=== PATIENT | female | born 1995 | race Asian ===

== ENCOUNTER 2016-07-17 20:59 | Emergency (ER) | payer OTHER ==
[2016-07-17] MEDS ORDERED: Ibuprofen TAB* 400 MG PO ONE (21:52)
--- NOTE | 2016-07-17 22:44 | RAD ---
HISTORY: Left upper leg pain, trauma COMPARISONS: None VIEWS: 1, Single frontal view of the pelvis FINDINGS: BONE DENSITY: Normal. BONES: There is no displaced fracture. JOINTS: There is no arthropathy. ALIGNMENT: There is no dislocation. SOFT TISSUES: Unremarkable. OTHER FINDINGS: None. IMPRESSION: NO ACUTE OSSEOUS INJURY. IF SYMPTOMS PERSIST, RECOMMEND REPEAT IMAGING.
--- NOTE | 2016-07-17 22:45 | RAD ---
HISTORY: Left upper leg trauma COMPARISONS: None VIEWS: 4, Frontal and lateral views of the left femur FINDINGS: BONE DENSITY: Normal. BONES: There is no displaced fracture. JOINTS: There is no arthropathy. ALIGNMENT: There is no dislocation. SOFT TISSUES: Unremarkable. OTHER FINDINGS: None. IMPRESSION: NO ACUTE OSSEOUS INJURY. IF SYMPTOMS PERSIST, RECOMMEND REPEAT IMAGING.
--- NOTE | 2016-07-17 22:47 | ED ---
Lower Extremity - HPI Summary HPI Summary: Patient presents with left thigh and hip pain after a glass door came out of its track and fell. She was carrying an armful of items and the door fell, hitting the items and her. She fell to the ground and was unable to get up due to pain. EMS was called and she was BIBA. She denies previous injury to this leg , or N/T. - History of Current Complaint Chief Complaint: EDExtremityLower Stated Complaint: LT UPPER LEG PAIN Time Seen by Provider: 07/17/16 21:08 Hx Obtained From: Patient, Family/[employer] Mechanism Of Injury: Blunt Trauma Onset of Pain: Immediate Onset/Duration: Minutes Severity Initially: Severe Severity Currently: Severe Pain Intensity: 8 Timing: Constant Character Of Pain: Aching, Stiffness Associated Signs And Symptoms: Positive: Negative Aggravating Factor(s): Movement Alleviating Factor(s): Rest Able to Bear Weight: No - Allergies/Home Medications Allergies/Adverse Reactions: Allergies Allergy/AdvReac Type Severity Reaction Status Date / Time No Known Allergies Allergy Verified 07/17/16 21:29 PMH/Surg Hx/FS Hx/Imm Hx Previously Healthy: Yes Infectious Disease History: No Infectious Disease History: Denies: Traveled Outside the [place] in Last 30 Days - Family History Known Family History: Positive: None - Social History Occupation: Student Lives: With Family Alcohol Use: None Substance Use Type: Reports: None Smoking Status (MU): Never Smoked Tobacco Review of Systems Positive: Myalgia. Negative: Edema Negative: Bruising Negative: Weakness, Paresthesia, Numbness All Other Systems Reviewed And Are Negative: Yes Physical Exam Triage Information Reviewed: Yes Vital Signs On Initial Exam: Initial Vitals Temp Pulse Resp BP Pulse Ox 98.1 F 73 16 88/60 99 07/17/16 21:26 07/17/16 21:26 07/17/16 21:26 07/17/16 21:26 07/17/16 21:26 Vital Signs Reviewed: Yes Appearance: Positive: Well-Appearing, Pain Distress, Thin Skin: Positive: Warm, Skin Color Reflects Adequate Perfusion, Dry, Soft Head/Face: Positive: Normal Head/Face Inspection Eyes: Positive: EOMI, MACK, Conjunctiva Clear ENT: Positive: Hearing grossly normal Respiratory/Lung Sounds: Positive: Breath Sounds Present Cardiovascular: Positive: RRR Abdomen Description: Positive: Nontender, Soft Musculoskeletal: Positive: Limited @ - Pain limits movement of the left hip; non -tender with IR/ER, Pain @ - TTP left thigh and hip; non-tender pelvis or knee. Negative: Edema Left, Edema Right Neurological: Positive: Sensory/Motor Intact, Alert, Oriented to Person Place, Time, NV Bundle Intact Distally, Unable to Assess Gait Psychiatric: Positive: Affect/Mood Appropriate AVPU Assessment: Alert Diagnostics - Vital Signs Vital Signs Temp Pulse Resp BP Pulse Ox 07/17/16 21:26 98.1 F 73 16 88/60 99 - Laboratory Lab Statement: Any lab studies that have been ordered have been reviewed, and results considered in the medical decision making process. - Radiology No standard instances Xray Interpretation: No Acute Changes Radiology Interpretation Completed By: Radiologist Lower Extremity Course/Dx - Diagnoses Differential Diagnosis/HQI/PQRI: Positive: Arthritis, Bursitis, Compartment Syndrome, Contusion, Fracture (Closed), Sprain, Strain Provider Diagnoses: Contusion of left hip and thigh Discharge - Discharge Plan Condition: Stable Disposition: HOME Patient Education Materials: Contusion in Adults (ED), RICE Therapy (ED) Referrals: Marck Lyles MD [Primary Care Provider] - Additional Instructions: Please use the crutches to keep weight off your leg until your pain improves. Use 600mg three times daily with meals for the next 3-5 days to decrease swelling and pain. Follow-up with your primary care provider if your symptoms do not begin to improve in then next 5 days. Return to the emergency department if symptoms worsen.
[2016-07-17 23:42] VITALS: BP 111/71
== END 2016-07-17 23:04 | disposition home or self-care (01) ==
LOC: ED 20:59
DX: S70.02XA Contusion of left hip, initial encounter (principal); S70.10XA Contusion of unspecified thigh, initial encounter; X58.XXXA Exposure to other specified factors, initial encounter; Y93.9 Activity, unspecified; Y92.9 Unspecified place or not applicable
CPT/HCPCS: 72170; 99282; A9270-GY

== ENCOUNTER 2016-08-01 09:38 | Emergency (ER) | payer OTHER ==
[2016-08-01] MEDS ORDERED: Ondansetron ODT TAB* 4 MG PO ONE (10:32)
[2016-08-01] MEDS ORDERED: Ketorolac INJ* 30 MG/ML 1 ML VIAL IM ONE (10:32)
--- NOTE | 2016-08-01 10:43 | UC ---
Abdominal Pain Female HPI - HPI Summary HPI Summary: 21 yo female awoke this AM with a particularly painful period pelvic cramps n/v x 1 pt states there is no way she could be and declines test - History of Current Complaint Chief Complaint: UCGI Stated Complaint: ABDOMINAL COMPLAINT Time Seen by Provider: 08/01/16 10:28 Hx Obtained From: Patient Hx Last Menstrual Period: 08/01/16 Onset/Duration: Sudden Onset, Lasting Hours Timing: Constant Severity Initially: Moderate Severity Currently: Moderate Pain Intensity: 7 Pain Scale Used: 0-10 Numeric Location: Other - bilateral pelvic Radiates: No Character: Cramping Aggravating Factor(s): Nothing Alleviating Factor(s): Nothing Associated Signs and Symptoms: Positive: Vaginal Bleeding, Nausea, Vomiting Allergies/Adverse Reactions: Allergies Allergy/AdvReac Type Severity Reaction Status Date / Time No Known Allergies Allergy Verified 08/01/16 10:16 PMH/Surg Hx/FS Hx/Imm Hx Endocrine History Of: Denies: Diabetes, Thyroid Disease Cardiovascular History Of: Denies: Cardiac Disorders, Hypertension Respiratory History Of: Denies: COPD, Asthma GI/ History Of: Denies: Ulcer - Surgical History Surgical History: None - Family History Known Family History: Positive: None Negative: Cardiac Disease, Hypertension, Diabetes - Social History Alcohol Use: None Substance Use Type: None Smoking Status (MU): Never Smoked Tobacco Review of Systems Constitutional: Negative Skin: Negative Eyes: Negative ENT: Negative Respiratory: Negative Cardiovascular: Negative Gastrointestinal: Abdominal Pain, Vomiting Genitourinary: Negative Motor: Negative Neurovascular: Negative Musculoskeletal: Negative Neurological: Negative Psychological: Negative All Other Systems Reviewed And Are Negative: Yes Physical Exam Triage Information Reviewed: Yes Appearance: Well-Appearing, No Pain Distress, Well-Nourished Vital Signs: Initial Vital Signs Temp 98.8 F 08/01/16 10:08 Pulse 59 08/01/16 10:08 Resp 18 08/01/16 10:08 BP 98/55 08/01/16 10:08 Pulse Ox 100 08/01/16 10:08 Vital Signs Reviewed: Yes Eyes: Positive: Conjunctiva Clear ENT: Positive: Hearing grossly normal. Negative: Nasal congestion, Trismus Neck: Positive: Supple, Nontender Respiratory: Positive: Lungs clear, Normal breath sounds, No respiratory distress Cardiovascular: Positive: RRR, No Murmur Abdomen Description: Positive: No Organomegaly, Soft, Other: - bilateral lower abd(pelvic tenderness). Negative: Nontender, CVA Tenderness (R), CVA Tenderness (L), Distended, Guarding, Hepatomegaly, McBurney's Point Tenderness, Peritoneal Signs, Pulsatile Mass, Splenomegaly Musculoskeletal: Positive: ROM Intact, No Edema Neurological: Positive: Alert Psychological Exam: Normal Skin Exam: Normal Re-Evaluation - Re-Evaluation First Eval Change: Improved - pain decreased/wants to go Abd Pain Female Course/Dx - Differential Dx/Diagnosis Provider Diagnoses: dysmenorrhea Discharge - Discharge Plan Condition: Stable Disposition: HOME Patient Education Materials: Dysmenorrhea (ED) Forms: *School Release Referrals: Marck Lyles MD [Primary Care Provider] - If Needed Additional Instructions: recheck tomorrow if not better recheck sooner for new or worsening symptoms
[2016-08-01 12:00] VITALS: BP 100/56
== END 2016-08-01 11:55 | disposition home or self-care (01) ==
LOC: UCEAST 09:38
DX: N94.6 Dysmenorrhea, unspecified (principal); R11.2 Nausea with vomiting, unspecified
CPT/HCPCS: 96372; 99212; A9270-GY; G0463; J1885